=== PATIENT | female | born 1970 | race Two or more races ===

== ENCOUNTER 2017-05-07 20:46 | Emergency (ER) | payer OTHER ==
[~2017-05-07] VITALS: Ht 170.2 cm; Wt 77.1 kg
[~2017-05-07 20:46] MED LIST: LIPO-FLAVONOID1 EACH PO
[2017-05-08] MEDS ORDERED: PEPCID40 MG PO (02:14)
[2017-05-08] MEDS ORDERED: LEVSIN/SL0.125 MG SL ×2 (02:14→02:15)
[2017-05-08] MEDS ORDERED: ZOFRAN ODT4 MG PO (02:14)
== END 2017-05-08 02:36 | disposition home or self-care (01) ==
LOC: ER 20:46
DX: K29.70 Gastritis, unspecified, without bleeding (principal)

== ENCOUNTER → 2017-05-23 | Emergency (ER) | payer OTHER ==
[~2017-05-23] MED LIST changes: +LEVSIN/SL0.125 MG SL; +PEPCID40 MG PO; +ZOFRAN ODT4 MG PO
== END | disposition left against medical advice (07) ==
LOC: ER 20:34
DX: Z53.20 Procedure and treatment not carried out because of patient's decision for unspecified reasons (principal)

== ENCOUNTER 2018-02-27 18:41 | Emergency (ER) | payer OTHER ==
[~2018-02-27] VITALS: Ht 170.2 cm; Wt 70.3 kg
[2018-02-27] MEDS ORDERED: SYNTHROID50 MCG (19:34)
[2018-02-27] MEDS ORDERED: CLORAZEPATE DIP15 MG (19:34)
[2018-02-28] MEDS ORDERED: KETO10TA2 PO (03:05)
[2018-02-28] MEDS ORDERED: MUCINEX DM ER1 EAC1 PO (03:05)
== END 2018-02-28 03:10 | disposition home or self-care (01) ==
LOC: ER 18:41
DX: J98.8 Other specified respiratory disorders (principal); M94.0 Chondrocostal junction syndrome [Tietze]

== ENCOUNTER 2019-09-25 15:40 | Emergency (ER) | payer OTHER ==
[~2019-09-25] VITALS: Ht 170.2 cm; Wt 68.0 kg
[~2019-09-25 15:40] MED LIST changes: +CLORAZEPATE DIP15 MG; +KETO10TA2 PO; +MUCINEX DM ER1 EAC1 PO; +SYNTHROID50 MCG
== END 2019-09-25 17:52 | disposition home or self-care (01) ==
LOC: ER 15:40
DX: B34.9 Viral infection, unspecified (principal)

== ENCOUNTER 2019-11-07 12:21 | Emergency (ER) | payer OTHER ==
[~2019-11-07] VITALS: Ht 170.2 cm; Wt 70.3 kg
[2019-11-07] MEDS ORDERED: CLONAZEPAM1 MG PO (15:08)
[2019-11-07] MEDS ORDERED: VISTARIL50 MG PO (15:08)
[2019-11-07] MEDS ORDERED: LEVOTHYROXINE25 MCG PO (15:08)
== END 2019-11-07 15:15 ==
LOC: ER 12:21
DX: R00.2 Palpitations (principal); I47.1 Supraventricular tachycardia; F06.4 Anxiety disorder due to known physiological condition; Z20.828 Contact with and (suspected) exposure to other viral communicable diseases

== ENCOUNTER 2021-04-26 13:27 | Emergency (ER) | payer OTHER ==
[~2021-04-26] VITALS: Ht 170.2 cm; Wt 65.3 kg
[~2021-04-26 13:27] MED LIST changes: +CLONAZEPAM1 MG PO; +LEVOTHYROXINE25 MCG PO; +VISTARIL50 MG PO
== END 2021-04-26 16:09 | disposition home or self-care (01) ==
LOC: ER 13:27
DX: B34.9 Viral infection, unspecified (principal); E03.9 Hypothyroidism, unspecified; F41.9 Anxiety disorder, unspecified

== ENCOUNTER 2021-09-06 12:50 | Emergency (ER) | payer OTHER ==
[~2021-09-06] VITALS: Ht 170.2 cm; Wt 65.8 kg
== END 2021-09-06 16:40 | disposition home or self-care (01) ==
LOC: ER 12:50
DX: S00.93XA Contusion of unspecified part of head, initial encounter (principal); S14.109A Unspecified injury at unspecified level of cervical spinal cord, initial encounter; S99.911A Unspecified injury of right ankle, initial encounter; W18.30XA Fall on same level, unspecified, initial encounter; Y93.9 Activity, unspecified; Y92.019 Unspecified place in single-family (private) house as the place of occurrence of the external cause; Y99.9 Unspecified external cause status

== ENCOUNTER → 2022-04-17 | Emergency (ER) | payer OTHER ==
[~2022-04-17] VITALS: Ht 175.3 cm; Wt 70.3 kg
== END | disposition home or self-care (01) ==
LOC: ER 20:47
DX: R10.13 Epigastric pain (principal); F32.9 Major depressive disorder, single episode, unspecified; E03.9 Hypothyroidism, unspecified